=== PATIENT | female | born 1975 | race Caucasian/White ===

== ENCOUNTER 2016-09-29 18:32 | Emergency (ER) | payer OTHER ==
[2016-09-29 18:37] VITALS: BP 142/75; PULSE 82; TEMP 98.7; BMI 32.5
[2016-09-29] MEDS ORDERED: predniSONE 20 MG TABLET (UD) PO ONE (19:48)
[2016-09-29] MEDS: ALBUTEROL SO4 2.5/IPRATROPIUM 0.5 INH SOL 3 ML VIAL.NEB. NEB SCH ×2 (20:00→20:26)
--- NOTE | 2016-09-29 20:01 | PDOC ---
History of Present Illness - General Chief Complaint: Wheezing Stated Complaint: CHEST PAIN Time Seen by Provider: 09/29/16 19:23 History Source: Patient Exam Limitations: No Limitations - History of Present Illness Initial Comments: 09/29/16 19:54 CHIEF COMPLAINT: Shortness of breath HISTORY OF PRESENT ILLNESS: This is a 41 year old female with a history of endometriosis s/p hysterectomy who presents complaining of dry cough, wheezing, and shortness of breath for 3 days. She has no history of asthma. She is a 1/2 ppd smoker. She denies calf pain/LE edema, recent travel/trauma/surgery, estrogen use, family/personal history of hypercoaguability, and hemoptysis. V/s on arrival are unremarkable. PCP is Dr. Juan Mark. REVIEW OF SYSTEMS: GENERAL/CONSTITUTIONAL: Chills, no fever. No weakness. No weight change. HEAD, EYES, EARS, NOSE AND THROAT: No change in vision. No ear pain or discharge. No sore throat. CARDIOVASCULAR: No chest pain or palpitations. RESPIRATORY: See HPI. GASTROINTESTINAL: No nausea, vomiting, diarrhea or constipation. GENITOURINARY: No dysuria, frequency, or change in urination. MUSCULOSKELETAL: No neck or back pain. SKIN: No rash or easy bruising. NEUROLOGIC: No headache, vertigo, loss of consciousness, or loss of sensation. HEMATOLOGIC/LYMPHATIC: No anemia, easy bleeding, or history of blood clots. ALLERGIC/IMMUNOLOGIC: No hives or skin allergy. No latex allergy. PHYSICAL EXAM: GENERAL: The patient is awake, alert, and fully oriented, in no acute distress. ENT: Pupils equal, round and reactive to light, extraocular movements intact, sclera anicteric, conjunctiva clear. Neck supple. LUNGS: Diffuse expiratory wheezing bilaterally with poor air entry. Speaking in full sentences but appears dyspneic. CV: RRR, S1/S2, no MRG. Cap refill < 2 sec. ABDOMEN: Soft, non-distended, non-tender. EXTREMITIES: Normal range of motion, no edema. No calf tenderness. NEUROLOGICAL: Normal speech, normal gait. CN II-XII grossly intact. PSYCH: Normal mood, normal affect. SKIN: Warm, dry, normal turgor, no rashes or lesions noted. Past History - Past Medical History Allergies/Adverse Reactions: Allergies Allergy/AdvReac Type Severity Reaction Status Date / Time No Known Allergies Allergy Verified 09/29/16 18:37 Home Medications: Ambulatory Orders Acetaminophen W/ Codeine #3 [Tylenol # 3 -] 1 tab PO Q6H #5 tablet 10/11/14 Amox-Tr/K Cl [Augmentin - 875Mg Tablet] 1 tab PO BID #14 tablet 10/11/14 Fluticasone Prop 0.05% Nasal [Flonase -] 1 spray NS BID #1 spray.pump 10/11/14 Albuterol Sulfate Inhaler - [Ventolin HFA Inhaler -] 1 - 2 inh PO QID #1 inhaler 09/29/16 Azithromycin [Zithromax 250mg Tablets -] 250 mg PO UTDICT #6 tab 09/29/16 Prednisone [Deltasone -] 40 mg PO DAILY #8 tablet 09/29/16 Promethazine/Phenyleph/Codeine [Phenergan VC+Codeine Syrup] 5 ml PO QID PRN # 120 ml MDD 20 mls 09/29/16 Other medical history: PATIENT DENIES PAST MEDICAL HISTORY - Psycho/Social/Smoking Cessation Hx Anxiety: No Suicidal Ideation: No Smoking Status: Yes Smoking History: Current every day smoker Number of Cigarettes Smoked Daily: 10 Information on smoking cessation initiated: No Hx Alcohol Use: No Drug/Substance Use Hx: No Substance Use Type: None *Physical Exam - Vital Signs Last Vital Signs Temp Pulse Resp BP Pulse Ox 98.7 F 82 18 142/75 99 09/29/16 18:33 09/29/16 18:33 09/29/16 18:33 09/29/16 18:33 09/29/16 18:33 ED Treatment Course - LABORATORY CBC & Chemistry Diagram: 09/29/16 20:10 09/29/16 20:08 - RADIOLOGY Radiology Studies Ordered: Category Date Time Status CHEST PA & LAT [RAD] Stat Radiology 09/29/16 19:49 Ordered Medical Decision Making - Medical Decision Making 09/29/16 20:01 A/P: 41 year old female with wheezing, cough, and shortness of breath. -CXR -DuoNebs and prednisone 60mg po -PERC negative -Basic labs including d-dimer (some concern as patient has never wheezed before) -Reassess 09/29/16 21:12 D-dimer is within normal limits at 201 *DC/Admit/Observation/Transfer Diagnosis at time of Disposition: Bronchitis - Discharge Dispostion Disposition: HOME Condition at time of disposition: Improved Admit: No - Referrals Referrals: Juan Mark MD [Primary Care Provider] - Freddy Rodriguez MD [Staff Physician] - 1 week ([employer]lectric [employer]) - Patient Instructions Printed Discharge Instructions: DI for Acute Bronchitis Additional Instructions: -You are being treated for bronchitis with azithromycin and Phenergan/Codeine cough syrup -Also take prednisone and use the albuterol inhaler as prescribed for wheezing -When you are better, please follow up with the open die inspector (referral enclosed ) for pulmonary function tests -Return here for worsening wheezing or any other concerning symptoms - Post Discharge Activity Work/School Note: Back to Work
[2016-09-29 20:27] LABS: EOSINOPHIL 1.4 % (0-4.5); MCH 32.2 pg (25.7-33.7); MCHC 34.1 g/dl (32.0-36.0); MEAN CELL VOLUME 94.3 fl (80-96); MEAN PLT VOLUME 9.9 fl (7.5-11.1); NEUTROPHILS 64.8 % (42.8-82.8); PLATELET COUNT 206 K/MM3 (134-434); RDW 13.2 % (11.6-15.6); WHITE BLOOD COUNT 10.6 K/mm3 (4.0-10.0)
[2016-09-29 21:10] LABS: CALCIUM 8.6 mg/dL (8.5-10.1); COCKROFT - GAULT 197.3785; CREATININE 0.5 mg/dL (0.55-1.02)
[2016-09-29] MEDS ORDERED: ALBUTEROL SO4 0.083% IH SOL 2.5 MG/3 ML VIAL.NEB. NEB ONE (21:37)
--- NOTE | 2016-10-04 12:39 | EKG ---
Test Reason : Blood Pressure : / mmHG Vent. Rate : 070 BPM Atrial Rate : 070 BPM P-R Int : 176 ms QRS Dur : 080 ms QT Int : 400 ms P-R-T Axes : 061 054 057 degrees QTc Int : 432 ms NORMAL SINUS RHYTHM WHEN COMPARED WITH ECG OF 19-JUL-2012 14:43, NO SIGNIFICANT CHANGE WAS FOUND Confirmed by SHAYE HASTINGS MD ([id number]) on 10/04/2016 12:38:59 PM Referred By: Confirmed By:SHAYE HASTINGS MD
== END 2016-09-29 22:09 | disposition home or self-care (01) ==
LOC: JER 18:32 → JERFT 18:32
PROC: 3E0F7GC Introduction of Other Therapeutic Substance into Respiratory Tract, Via Natural or Artificial Opening (ICD-10-PCS; principal; 2016-09-29)
PROC: 3E0F7GC Introduction of Other Therapeutic Substance into Respiratory Tract, Via Natural or Artificial Opening (ICD-10-PCS; 2016-09-29)
DX: J40 Bronchitis, not specified as acute or chronic (principal); F17.210 Nicotine dependence, cigarettes, uncomplicated
CPT/HCPCS: 36415; 71020-TC; 80048; 84703; 85025; 85379; 93005; 93010; 99281-25

== ENCOUNTER 2022-01-30 08:50 | Observation (INO) | payer OTHER ==
[2022-01-30] MEDS ORDERED: MECLIZINE HCL 25 MG TABLET (FP) PO ONE (09:36)
[2022-01-30] MEDS ORDERED: SODIUM CHLORIDE 0.9% 500 ML INFUS.BAG IV ONE (09:36)
[2022-01-30] MEDS ORDERED: ACETAMINOPHEN 1000 MG/100 ML BAG IVPB ONE (09:39)
[2022-01-30] MEDS ORDERED: ACETAMINOPHEN INJECTION 100 ML IVPB ONE ×2 (10:00→16:49)
[2022-01-30] MEDS ORDERED: MECLIZINE HCL 25 MG TABLET (FP) ONE (10:00)
[2022-01-30 10:39] LABS: EOS % 0.5 % (0-4.5); HEMATOCRIT 43.4 % (32.4-45.2); HEMOGLOBIN 14.7 GM/dL (10.7-15.3); LYMPH % 14.2 % (8-40); MCH 31.8 pg (25.7-33.7); MCHC 33.9 g/dl (32.0-36.0); MEAN CELL VOLUME 93.8 fl (80-96); MEAN PLT VOLUME 9.4 fl (7.5-11.1); MONO % 6.1 % (3.8-10.2); NEUT % 78.2 % (42.8-82.8); PLATELET COUNT 184 10^3/uL (134-434); RBC 4.63 M/mm3 (3.60-5.2); RDW 12.8 % (11.6-15.6); WHITE BLOOD COUNT 9.1 K/mm3 (4.0-10.0)
[2022-01-30 10:45] LABS: INR 1.01 (0.83-1.09); PROTHROMBIN TIME (PATIENT) 11.6 SEC (9.7-13.0)
[2022-01-30 10:57] LABS: URINE APPEARANCE CLEAR; URINE BILIRUBIN NEGATIVE (NEGATIVE); URINE COLOR YELLOW; URINE GLUCOSE (UA) NEGATIVE (NEGATIVE); URINE KETONE NEGATIVE (NEGATIVE); URINE LEUK ESTERASE NEGATIVE (NEGATIVE); URINE NITRITE NEGATIVE (NEGATIVE); URINE PROTEIN NEGATIVE (NEGATIVE); URINE UROBILINOGEN 0.2 mg/dL (0.2-1.0)
[2022-01-30 10:58] LABS: CALCIUM 9.1 mg/dL (8.5-10.1)
[2022-01-30 10:59] LABS: BLOOD UREA NITROGEN 8.6 mg/dL (7-18); MAGNESIUM 2.2 mg/dL (1.8-2.4)
[2022-01-30 11:02] LABS: CREATININE 0.6 mg/dL (0.55-1.3); PHOSPHOROUS 3.1 mg/dL (2.5-4.9)
[2022-01-30 11:03] LABS: BILIRUBIN,TOTAL 0.5 mg/dL (0.2-1); TOT PROT 7.2 g/dl (6.4-8.2)
[2022-01-30 11:20] LABS: HCG,QUALITATIVE URINE Negative
[2022-01-30] MEDS ORDERED: diazePAM 2 MG TABLET PO ONE (13:01)
[2022-01-30] MEDS ORDERED: diazePAM 2 MG TABLET ONE (13:03)
[2022-01-30] MEDS ORDERED: DEXTROSE 5%-0.45% SALINE 1,000 ML IV SCH (16:30)
[2022-01-30] MEDS: ACETAMINOPHEN 1000 MG/100 ML BAG IVPB PRN (16:59)
[2022-01-31] MEDS: MECLIZINE HCL 25 MG TABLET (FP) PO PRN ×2 (04:15→14:28)
[2022-01-31 05:18] VITALS: BMI 32.8
[2022-01-31] MEDS: HEPARIN NA (PORCINE) 5,000 UNITS/ML 1ML VIAL SQ SCH ×2 (09:37→21:32)
[2022-01-31 11:25] LABS: BASO % 0.5 % (0-2.0); EOS % 2.2 % (0-4.5); HEMATOCRIT 40.6 % (32.4-45.2); HEMOGLOBIN 13.7 GM/dL (10.7-15.3); LYMPH % 23.1 % (8-40); MCH 31.6 pg (25.7-33.7); MCHC 33.7 g/dl (32.0-36.0); MEAN CELL VOLUME 93.7 fl (80-96); MEAN PLT VOLUME 10.1 fl (7.5-11.1); NEUT % 64.2 % (42.8-82.8); PLATELET COUNT 158 10^3/uL (134-434); RBC 4.34 M/mm3 (3.60-5.2); RDW 13.3 % (11.6-15.6); WHITE BLOOD COUNT 5.1 K/mm3 (4.0-10.0)
[2022-01-31] MEDS: ACETAMINOPHEN 1000 MG/100 ML BAG IVPB PRN (12:16)
[2022-01-31 12:22] LABS: ALBUMIN 3.3 g/dl (3.4-5.0); BILIRUBIN,TOTAL 0.2 mg/dL (0.2-1); BLOOD UREA NITROGEN 7.2 mg/dL (7-18); CALCIUM 8.7 mg/dL (8.5-10.1); CREATININE 0.6 mg/dL (0.55-1.3); TOT PROT 6.2 g/dl (6.4-8.2)
[2022-01-31] MEDS ORDERED: LORazepam 1 MG TABLET PO ONE (16:08)
[2022-01-31] MEDS: MECLIZINE HCL 12.5 MG TABLET PO PRN (21:32)
[2022-01-31] MEDS: NORTRIPTYLINE HCL 10 MG CAPSULE PO SCH (21:33)
[2022-01-31] MEDS ORDERED: MECLIZINE HCL 25 MG TABLET (FP) PO SCH (22:00)
[2022-01-31 23:42] VITALS: RESP 18
[2022-02-01] MEDS: HEPARIN NA (PORCINE) 5,000 UNITS/ML 1ML VIAL SQ SCH ×2 (10:13→21:11)
[2022-02-01] MEDS: MECLIZINE HCL 12.5 MG TABLET PO PRN ×2 (10:13→21:12)
[2022-02-01] MEDS ORDERED: LORazepam 1 MG TABLET PO ONE (13:00)
[2022-02-01] MEDS: NORTRIPTYLINE HCL 10 MG CAPSULE PO SCH (21:12)
[2022-02-02 13:53] VITALS: BP 126/74; PULSE 70; TEMP 98.4
== END 2022-02-02 17:10 | disposition home or self-care (01) ==
LOC: JER 08:50 → JERBED 16:17 → OBSVTOIN 16:22 → INTOOBSV 16:22 → J6S 01-31 03:57
PROVIDERS: ADMIT Internal Medicine; ATTEND Internal Medicine
PROC: 3E033NZ Introduction of Analgesics, Hypnotics, Sedatives into Peripheral Vein, Percutaneous Approach (ICD-10-PCS; principal; 2022-01-30)
PROC: 3E0337Z Introduction of Electrolytic and Water Balance Substance into Peripheral Vein, Percutaneous Approach (ICD-10-PCS; 2022-01-30)
DX: R42 Dizziness and giddiness (principal); E66.8 Other obesity; Z68.32 Body mass index [BMI] 32.0-32.9, adult; F17.210 Nicotine dependence, cigarettes, uncomplicated
CPT/HCPCS: 0241U-QW; 36415; 70450-TC; 70551-TC; 71046-TC-FY; 80053; 81003; 83735; 84100; 84484; 84703; 85025; 85610; 87086; 93005; 93010; 93306-TC; 96365; 96374; 96375; 96376; 99285-25; G0378; J1644